=== PATIENT | female | born 1980 | race African-American/Black ===

== ENCOUNTER → 2021-04-02 | Emergency (ER) | payer OTHER ==
[~2021-04-02] VITALS: Ht 162.6 cm; Wt 65.8 kg
[~2021-04-02] MED LIST: CEPHALEXIN500 MG PO; IRON236 MG; KETO10TA2 PO
== END | disposition home or self-care (01) ==
LOC: ER 03:55
DX: S81.801A Unspecified open wound, right lower leg, initial encounter (principal)